=== PATIENT | female | born 2000 | race Caucasian/White ===

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

== ENCOUNTER 2021-09-23 07:01 | Inpatient (IN) | payer MEDICAID, SELFPAY ==
[2021-09-23] VITALS (69 sets, daily range): BP systolic 90–133; BP diastolic 53–78; PULSE 68–202; RESP 16; TEMP 36.2–37; O2SAT 97–100; BMI 36.1
[2021-09-23] MEDS: Lactated Ringers 1,000 ML 50 ML IV (07:40)
--- NOTE | 2021-09-23 07:47 | PCM.HP.OB ---
HPI - General General Date of Admission: 09/23/21 HPI Narrative BRENDA RESENDEZ, is a 21 F at 40w0d who presents for scheduled elective IOL. H/o pre eclampsia with first and obesity in with BMI 35. She is doing well this morning. Denies MICHELE, vision changes, RUQ pain. Occasional ctx's. No vb, lof. Good FM. Maternal Data Information Final ANTONIA: 09/23/21 PFSH PFSH Home Medications PNV cmb#95-ferrous fumarate-FA [ Formula] 1 ea PO DAILY 03/12/18 [History Last Taken 04/25/18 07:00 1 tab] docusate sodium 100 mg PO BID PRN PRN #30 cap 05/01/18 [Rx Last Taken Unknown] ibuprofen 800 mg PO TID PRN PRN #60 tab 05/01/18 [Rx Last Taken Unknown] labetalol 100 mg PO BID #60 tab 05/01/18 [Rx Last Taken Unknown] Allergy/AdvReac Type Severity Reaction Status Date / Time No Known Allergies Allergy Verified 04/28/18 11:51 Social History Smoking Status: Never smoker NST FHR Rate Baby A Baseline: 145 Variability:: Moderate Accelerations:: None Decelerations:: Variable (2 variable decelerations) Vital Signs Vital Signs Vital Signs: 09/23/21 07:24 Temperature 98.2 F Temperature Source Temporal Pulse Rate 103 H Blood Pressure 133/67 H BP Systolic 133 BP Diastolic 67 Physical Exam Const alert and no apparent distress General Appearance: comfortable Resp normal respiratory effort GI soft to palpation and non-tender Extremity normal to inspection Labs Labs Labs: Blood Type O NEGATIVE Antibody Screen NEGATIVE Hct 32.1 % (37-47) L Hgb 10.5 g/dl (12.0-15.0) L Assessment & Plan (1) Rh negative state in antepartum period: (2) Obesity affecting : (3) History of severe pre-eclampsia: (4) 40 weeks gestation of : (5) Elective induction of labor planned: PLAN: - Admit for routine intrapartum care for planned elective IOL - No pre e symptoms on admission. SBP 133 on presentation. Continue to monitor BP's and will send pre e labs - Intracervical almanzar and pitocin gtt - Rapid Covid - UDS - GBS negative - Epidural PRN - EFW expected to be < 4500 g and pelvis adequate - Anticipate vaginal delivery (6) History of marijuana use:
[2021-09-23 08:01] LABS: Absolute Lymphocyte Count 2.53 X10^3/uL (0.83-4.51); Absolute Neutrophil Count 7.2 X10^3/uL (2.0-7.7); Basophil# 0.04 X10^3/uL; Basophil% 0.4 % (0-1); Eosinophils% 0.9 % (0-5); Hematocrit 37.6 % (37-47); Hemoglobin 12.4 g/dL (12.0-15.0); Lymphocyte # 2.53 X10^3/ul (0.83-4.51); Lymphocyte % 23.4 % (19-41); Mean Corpuscular Hgb 28.8 pg (27.0-32.0); Mean Corpuscular Volume 87.2 fL (81-99); Mean Platelet Vol. 13.9 fl (6.2-12.0); Monocyte# 0.84 X10^3/uL; Monocyte% 7.8 % (0-10); NRBC Flagged by Analyzer 0 % (0-5); Neutrophil # 7.23 X10^3/uL (2.7-7.7); Neutrophil % 66.9 % (47-70); Platelet Count 159 K/mm3 (150-450); RBC Distribution Width CV 14.2 % (11.6-14.6); RBC Distribution Width SD 45.3 fl (35.1-43.9); Red Blood Count 4.31 M/mm3 (4.2-5.4); White Blood Count 10.8 K/mm3 (4.4-11.0)
[2021-09-23] MEDS: 0.9% Normal Saline Single 100 ML IV.SOLN. INTRA-UTER (08:05)
[2021-09-23 08:44] LABS: ALB/GLOB Ratio 0.6 RATIO (0.9-2.4); AST(SGOT) 11 U/L (15-37); Alanine Aminotransfer ALT/SGPT 13 U/L (13-56); Albumin, Serum 2.5 g/dL (3.2-5.0); Alkaline Phosphatase 118 U/L (45-117); Anion Gap 8 (5-15); BUN 8 mg/dL (7-18); BUN/Creat Ratio 14.3 RATIO (10-20); Calcium,Total 8.3 mg/dL (8.5-10.1); Chloride 111 mmol/L (98-107); Creatinine, Serum 0.56 mg/dL (0.55-1.02); EST Glomerular Filtration Rate 143 mL/min (>60); Est Glom Filt Rate - Afr Amer 173 mL/min (>60); Estimated Creatinine Clearance 124.63 ml/min; Globulin 4.1 g/dL (2.2-4.2); Glucose 92 mg/dL (74-106); Potassium 3.8 mmol/L (3.5-5.1); Protein, Total 6.6 g/dL (6.4-8.2); Sodium Level 139 mmol/L (136-145)
[2021-09-23] MEDS: Lactated Ringers 500 ML 999 ML IV ×2 (09:28→12:49)
[2021-09-23] MEDS: Oxytocin 30 units/NS 500 ml 30 UNITS/500 ML IV.SOLN IV (10:06)
[2021-09-23 11:06] LABS: Protein, Urine (Random) 19.2 mg/dL (<11.9); Protein:Creat Ratio 202 mg/g CRE (0-200)
[2021-09-23 11:08] LABS: Amphetamine Urine VISTA NEGATIVE (<1000 ng/mL); Barbiturate Urine VISTA NEGATIVE (< 200 ng/mL); Benzodiazepine Urine VISTA NEGATIVE (< 200 ng/mL); Cocaine Urine VISTA NEGATIVE (< 300 ng/mL); Ecstacy Urine VISTA NEGATIVE (< 500 ng/mL); Methadone Urine VISTA NEGATIVE (< 300 ng/mL); PCP Urine VISTA NEGATIVE (< 25 ng/mL); THC Urine VISTA NEGATIVE (< 50 ng/mL); Vista UDS pH Range 6
--- NOTE | 2021-09-23 12:15 | PN.OBGYN_ITS ---
Subjective Subjective Doing well resting in bed on side. Objective Data Objective Data Vital Signs: Vital Signs Temp Pulse BP Pulse Ox 97.3 F L 82 109/56 L 98 09/23/21 12:01 09/23/21 12:03 09/23/21 12:03 09/23/21 12:02 Weight: 197 lb 3.2 oz Body Mass Index (BMI) 36.1 Intake & Output: Intake and Output for Last 24 Hours 09/21/21 09/22/21 09/23/21 23:59 23:59 23:59 Intake Total 595.13 / 595.13 Balance 595.13 / 595.13 Lab / Micro Data Result Diagrams: 09/23/21 07:40 09/23/21 08:10 Labs: Laboratory Results - last 24 hr 09/23/21 07:40: WBC 10.8, RBC 4.31, Hgb 12.4, Hct 37.6, MCV 87.2, MCH 28.8, MCHC 33.0, RDW Std Deviation 45.3 H, RDW Coeff of Brianne 14.2, Plt Count 159, MPV 13.9 H , Immature Gran % (Auto) 0.600, Neut % (Auto) 66.9, Lymph % (Auto) 23.4, [place] % (Auto) 7.8, Eos % (Auto) 0.9, Baso % (Auto) 0.4, Absolute Neuts (auto) 7.2, Absolute Lymphs (auto) 2.53, Nucleated RBC % 0 09/23/21 07:40: Blood Type O NEGATIVE, Antibody Screen NEGATIVE 09/23/21 08:10: Sodium 139, Potassium 3.8, Chloride 111 H, Carbon Dioxide 20.0 L , Anion Gap 8, BUN 8, Creatinine 0.56, Estim Creat Clear Calc 124.63, Est GFR (MDRD) Af Amer 173, Est GFR (MDRD) Non-Af 143, BUN/Creatinine Ratio 14.3, Glucose 92, Calcium 8.3 L, Total Bilirubin 0.30, AST 11 L, ALT 13, Alkaline Phosphatase 118 H, Total Protein 6.6, Albumin 2.5 L, Globulin 4.1, Albumi n/Globulin Ratio 0.6 L 09/23/21 10:40: U Random Total Protein 19.2 H, Urine Creatinine 95.00, Protein/Creatinin Ratio 202 H 09/23/21 10:40: Urine Opiates Screen NEGATIVE, Urine Methadone Screen NEGATIVE, Ur Barbiturates Screen NEGATIVE, Ur Phencyclidine Scrn NEGATIVE, Ur Amphetamines Screen NEGATIVE, U Methamphetamin-MDMA NEGATIVE, U Benzodiazepines Scrn NEGATIVE, Urine Cocaine Screen NEGATIVE, U Cannabinoids Screen NEGATIVE, Ur Drug Screen Comment Micro: Microbiology 09/23/21 08:05 Nasal Secretion SARS-CoV-2 Antigen (Rapid) - Final Physical Exam Narrative cervix 4cm/60/-2 AROM clear fluid NST FHR Rate Baby A Baseline: 135 Variability:: Moderate Accelerations:: 15 x 15 Decelerations:: None FHR Category:: Category I Uterine Activity:: Irregular Assessment & Plan (1) Obesity affecting : (2) Elective induction of labor planned: PLAN: 1) Continue Active management, pitocin per protocol 2) Continuous EFM 3) AROM, clear fluid 4) collaborative physician and notified of patient status.
[2021-09-23] MEDS: fentaNYL-bupivacaine (epidural) 100 ML BAG EPIDURAL (13:19)
[2021-09-23] MEDS: Lactated Ringers 1,000 ML 200 ML IV (17:20)
[2021-09-23] MEDS: Oxytocin 30 units/NS 500 ml 30 UNITS/500 ML IV.SOLN 334 UNITS IV (17:35)
--- NOTE | 2021-09-23 17:45 | PCM.OPRPT ---
Problems Associated Problem List Diagnoses (1) Rh negative state in antepartum period: (2) Obesity affecting : (3) History of severe pre-eclampsia: (4) 40 weeks gestation of : (5) Elective induction of labor planned: (6) History of marijuana use: Report of Operation Date of Procedure: 09/23/21 Pre-Operative Diagnosis: 40 week gestation, intrauterine , obesity in , history of pre eclampsia, elective IOL Post-Operative Diagnosis: As above Surgery/Procedure Performed:: Vaginal delivery Description of Surgical Findings:: VFI in ELPIDIO position. Terminal meconium. Apgars 8,9. Surgeon: Arik Type of Anesthesia: Epidural Special Medications: None Specimen's removed: Placenta Drains: Mccurdy Estimated Blood Loss (mL): 100 Fluids Replaced: N/A Description of Procedure: The patient was complete and pushing. The head of the infant was delivered over an intact perineum in the left occiput anterior position. The cord was noted to be wrapped around the body of the infant x 1, over the shoulders and behind the head, and under the one arm as well, and was not able to be easily reduced. The anterior shoulder, followed by the posterior shoulder, followed by the body of the was delivered through the loose cord that was wrapped around the body of the . The infant was delivered without any force or delay and was vigorous upon delivery. The infant was placed on the maternal abdomen and the cord was clamped and cut after a 60 seconnd delay by the father of the baby. Cord blood was obtained. The placenta was delivered spontaneously and noted to be normal-appearing and intact with three-vessel cord. The uterus was explored x1. No lacerations were noted. She had a periurethral abrasion that was nonbleeding. Vaginal sweep was performed. Instrument sponge counts were correct. Grafts/Implants Used: None Complications None Admit VTE Documentation VTE Present on Admission: No
--- NOTE | 2021-09-23 19:51 | NURSING ---
Epidural catheter removed, blue tip intact.
--- NOTE | 2021-09-23 20:19 | NURSING ---
Report given to Sarina VANG, taking over pt care at this time.
[2021-09-24 00:22] VITALS: BP 112/61; PULSE 88; RESP 16; TEMP 36.7
[2021-09-24] MEDS: Acetaminophen 500 MG Tablet 1000 MG PO ×2 (00:27→10:55)
[2021-09-24] MEDS: Ibuprofen 600 MG Tablet PO (01:57)
[2021-09-24 04:21] VITALS: BP 128/56; PULSE 88; RESP 16; TEMP 36.6
[2021-09-24] MEDS: Etonogestrel 68 MG IMPLANT SC (08:50)
--- NOTE | 2021-09-24 08:58 | PCM.PN.OB ---
Subjective Subjective Denies complaints. Objective Data Objective Data Vital Signs: Vital Signs Temp Pulse Resp BP Pulse Ox 97.8 F 88 16 128/56 H 97 09/24/21 04:21 09/24/21 04:21 09/24/21 04:21 09/24/21 04:21 09/23/21 19:50 Oxygen Delivery Method Room Air Weight: 197 lb 3.2 oz Body Mass Index (BMI) 36.1 Intake & Output: Intake and Output for Last 24 Hours 09/22/21 09/23/21 09/24/21 23:59 23:59 23:59 Intake Total 2903.56 / 2903.56 Output Total 1100 / 1100 400 / 400 Balance 1803.56 / 1803.56 -400 / -400 Lab / Micro Data Result Diagrams: 09/23/21 07:40 09/23/21 08:10 Labs: Laboratory Results - last 24 hr 09/23/21 07:40: Blood Type O NEGATIVE, Antibody Screen NEGATIVE 09/23/21 10:40: U Random Total Protein 19.2 H, Urine Creatinine 95.00, Protein/Creatinin Ratio 202 H 09/23/21 10:40: Urine Opiates Screen NEGATIVE, Urine Methadone Screen NEGATIVE, Ur Barbiturates Screen NEGATIVE, Ur Phencyclidine Scrn NEGATIVE, Ur Amphetamines Screen NEGATIVE, U Methamphetamin-MDMA NEGATIVE, U Benzodiazepines Scrn NEGATIVE, Urine Cocaine Screen NEGATIVE, U Cannabinoids Screen NEGATIVE, Ur Drug Screen Comment 09/24/21 00:35: Screen NEGATIVE, Baby's Blood Type O POSITIVE, Baby's MELIA NEGATIVE Micro: Microbiology 09/23/21 08:05 Nasal Secretion SARS-CoV-2 Antigen (Rapid) - Final Physical Exam Const alert, oriented x3 and no apparent distress HEENT normocephalic GI soft to palpation, non-tender and non-distended GI Narrative: fundus firm, mid & below umbilicus Extremity normal to inspection and no calf tenderness Assessment & Plan (1) Elective induction of labor planned: COMMENT: PPD#1 PLAN: Routine PP care D/c home later today as requested by patient (2) control counseling: PLAN: Patient desires Nexplanon placement and was counseled on R/B/A. Informed consent obtained. Procedure Sign in completed. Arm prepped. Lidocaine (3ml) injected. Nexplanon inserted without difficulty. Sterile bandage placed by RN. Patient tolerated procedure well.
--- NOTE | 2021-09-24 09:01 | PCM.DC ---
Discharge Instructions Diet Discharge Diet: No restrictions Activity Discharge Activity: May Shower May resume sexual activity in: 6 weeks Weight Bearing Status: Weight bearing as tolerated Dressing / Incision Call your doctor if you observe: Fever of 101 or Higher, Coldness, Increased Pain, Change in Color, Inability to urinate, Inability to have a bowel movement, Using more than 1 pad per hour, Shortness of breath, Dizziness, Fainting spells, Chest pain, Increased palpitations (irregular heartbeat), Calf discomfort and Uncontrolled pain Follow Up Care Please Follow Up With: Laurie Lyons MD When: Follow up in 2 and 6 weeks for visits. Test Results: Test results from this visit will be discussed in further detail at your follow-up appointment, if applicable. Discharge Plan Admission Admit Date/Time: 09/23/21 07:01 Primary Reason for Your Visit: Vaginal delivery Attending Provider: Trinity Elise Primary Care Provider: Madeline Boyd Discharge Orders/Prescriptions Prescriptions: New acetaminophen 500 mg Tablet 1,000 mg PO Q6H PRN PRN (Reason: Pain 1-10 Or Fever) Qty: 0 RF: 0 ibuprofen 600 mg Tablet 600 mg PO Q6H PRN PRN (Reason: Pain Score 1-3) Qty: 0 RF: 0 Continued PNV cmb#95-ferrous fumarate-FA [ Multivitamins] 1 EACH tablet 1 ea PO DAILY RF: 0 Discontinued aspirin 81 mg Tablet 81 mg PO DAILY RF: 0 Referrals / Follow Up: Madeline Boyd MD [Primary Care Provider] - Disposition Disposition (needs filled in before D/C Order can be placed): Home, Self Care
[2021-09-24 09:45] VITALS: BP 125/65; PULSE 87; RESP 16; TEMP 36.6
[2021-09-24 12:19] VITALS: BP 110/67; PULSE 80; RESP 16; TEMP 36.4
--- NOTE | 2021-09-24 16:11 | CASEMGMT ---
Social Work Assessment Labor and Delivery Unit Patient Address: [address] [place] [address] Phone number: [phone] Date of Referral: 09.23.2021 Time of Referral: 2021 Referred By: Dr. Elise Date of Intervention: 09.24.2021 Time of Intervention: 1339 Reason for Referral: Maternal history of anxiety and THC use in History obtained from: medical records and mother of baby (MOB) Navneet Berry; father of baby (FOB) Gadiel Carlton present for part of conversation. Household composition: MOB, FOB, and older child. Home situation is reported as safe and adequate. Patient's parent/guardian status: MOB is a 22 year old single female. FOB a single male, born 12.10.1998. Together for 4-5 years. MOB denies any form of abuse, control, intimidation in this relationship. MOB and FOB now have 2 children together. Sharon Carlton, born 09.23.2021 and older daughter Doris Carlton, born 04.29.2018. Medical History: SUE is G2, P1 to 2 after delivering Sharon. care started later at 14 weeks, reportedly due to insurance issues. Delivery of Galsharmila at 40 weeks gestation. Apgars 8 and 9 at 1 and 5 minutes of life. Birthweight 6 pounds 15 ounces. Educational Status: High school. No reported issues with reading, writing, or learning comprehension. Financial Status: SUE was working at [employer], and uncertain whether will return to this employment after maternity leave or to another employment. 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 Is receiving unemployment. MOB and FOB both deny concerns with finances and MOB had saved some money up knowing the lay off could happen. Supplies: MOB and FOB report to have necessary supplies including car seat, bassinet for sleeping, clothing, diapers, wipes, and a breast pump. Plan is to breast feed baby. Childcare/Caregiver(s): MOB and FOB. Will have child care centre director when both parents work. Transportation: Both parents drive. No reported issues. Programs/Agencies Involved: S for medical. No other agency involvement reported. Declines referrals to WIC or [facility] at this time. Children Services/Legal Issues: No reports of legal issues. Denies any past or current involvement with children services. Behavioral Health Issues: Mental Health History: MOB reports history of situational anxiety related to parental home, but since moving out things have gotten better. Denies any concerns about violence, but more issues surrounding gnosticism and expectations. MOB reports a better relationship with parents since moving out of the home. MOB denies history of SI and no HI endorsed. No history of treatment. Denies any mood/anxiety issues after Terra. Substance Use History: MOB denies illicit substance use. Reports belief that the positive drug screen was due to using someone's vape pen, to try the new flavor, and did not know it was marijuana. MOB reports it was a one time things. Denies any use of alcohol in . Denies use of heroin, cocaine, meth, or pills. Drug Screens: Maternal drug screen in March at 14 week visit for marijuana (03.27.2021). Negative upon admission. Baby's urine is negative. Meconium is pending. Family/Social Stressors: No identified stressors at this time. Support Systems: MOB reports support from FOB, FOB's parents (who are watching Terra) and MOB's parents. FOB reports will have more time at home to help out due to being laid off. Depression/Shaken Baby/Safe Sleeping : Reviewed shaken baby prevention and safe sleeping. Educated to mood and anxiety disorders, risk factors, and importance of seeking out and accepting support should symptoms arise and/or become distressing. ASSESSMENT: Met with MOB and FOB in room, introducing to self and social work role. Later in assessment asked FOB to leave to completed depression screening. Then also spoke with MOB about topics of substance use and domestic violence. MOB and FOB both cooperative, appearing relaxed, polite. MOB attentive to baby during social work visit. Appropriate in how handled the baby. Baby sneezed intermittently throughout social work visit. There have been no voiced concerns to this conventional underwriter regarding parents/child interactions or bonding. MOB and FOB deny any concerns with home going, report to have needed supplies for baby and to have adequate support from family. MOB and FOB both deny any PPD after Terra was born. MOB reports to feel a connection to the new baby. Privately addressed with MOB the maternal substance use. MOB maintains that used marijuana one time only, and believes the source was due to trying someone else's vape pen. Educated MOB to [place] and reporting substance exposure in utero to children services. Let MOB know that uncertain if anything will be done at this time, but should the meconium come back positive then likely said agency would make some contact. MOB had no voiced questions or concern and accepted education without issue. Safe Plan of Care for infant related to substance use: MOB reports use was one time. Denies use prior to or ongoing. Plans to remain drug free. PLAN: MOB and baby to home. Provided MOB with an [facility] social service resource list as well as packet on mood and anxiety disorders. Plan to call children services due to 2nd trimester drug screen/substance exposure to infant in utero, and no retesting until time of delivery. -DANA Quarles, THEATER TECHNICIAN
[2021-09-24 17:31] VITALS: BP 121/78; PULSE 69; RESP 16; TEMP 36.3
--- NOTE | 2021-09-25 09:40 | CASEMGMT ---
Social Work Labor and Delivery Unit Called [facility] at [phone] and spoke with Sabrina in the screening department. Referral given due to late care and substance exposure to infant in utero. Reported negative drug screens for mom and baby at time of delivery, pending meconium. Brief maternal and infant histories provided. No other services requested or indicated other than monitor for meconium drug screen results. -JESSENIA Quarles, CHAIN HOOKER
== END 2021-09-24 18:32 | disposition home or self-care (01) | DRG 560 ==
PROVIDERS: Admitting Provider Obstetrics & Gynecology; PCP Pediatrics; Referring Provider Obstetrics & Gynecology; Visit Provider Obstetrics & Gynecology
DX: O99.214 Obesity complicating childbirth (principal); Z37.0 Single live birth; E66.9 Obesity, unspecified; O76 Abnormality in fetal heart rate and rhythm complicating labor and delivery; Z3A.40 40 weeks gestation of pregnancy; Z87.59 Personal history of other complications of pregnancy, childbirth and the puerperium; Z87.898 Personal history of other specified conditions; Z67.91 Unspecified blood type, Rh negative; O69.82X0 Labor and delivery complicated by other cord entanglement, without compression, not applicable or unspecified
CPT/HCPCS: 59025; 59050; 80053; 80307; 82570; 84156; 85025; 85461; 86850; 86900; 86901; 87426; 90384; 99218; J7120; G0378; J2790

== ENCOUNTER 2022-07-23 03:21 | Emergency (ER) | payer MEDICAID, SELFPAY ==
[2022-07-23 03:22] VITALS: BP 132/64; PULSE 89; RESP 14; TEMP 36.7; O2SAT 98; BMI 36.3
--- NOTE | 2022-07-23 03:25 | EKG12_ITS ---
Test Reason : CP Blood Pressure : / mmHG Vent. Rate : 089 BPM Atrial Rate : 089 BPM P-R Int : 160 ms QRS Dur : 082 ms QT Int : 382 ms P-R-T Axes : 058 028 037 degrees QTc Int : 464 ms Normal sinus rhythm with sinus arrhythmia Normal ECG Confirmed by CHIQUIS ALMONTE, SHERRY ([id number]), subeditor AWA BURGESS ([id number]) on 07/25/2022 10:30:40 A M Referred By: ROBERT Confirmed By:HILLARY SIM MD
--- NOTE | 2022-07-23 03:47 | RAD_ITS ---
EXAM: XR CHEST, 2 VIEWS CLINICAL INDICATION: chest pain TECHNIQUE: Frontal and lateral views of the chest. This report was created using [employer] report generation technology. COMPARISON: None. FINDINGS: LUNGS AND PLEURAL SPACES: Unremarkable. No consolidation or edema. No pneumothorax. No effusion. HEART: Unremarkable. Cardiac silhouette not enlarged. MEDIASTINUM: Central airways and mediastinal contour are unremarkable. BONES/JOINTS: Unremarkable. SOFT TISSUES: Unremarkable. RAD/Chest PA and Lateral IMPRESSION: No radiographic evidence of acute cardiopulmonary disease. Electronically Signed: Ap Zeng MD at 5:55 EST ,
--- NOTE | 2022-07-23 04:00 | EX.ED.DYSGE1 ---
HPI History of Present Illness Chief Complaint: Chest Pain Narrative Narrative: Patient is a 22-year-old female with past medical history of vaping as well as preeclampsia in . She states that over the past few months she will intermittently have times where she feels like her chest is on fire. She states that it seems to occur more at night when she is trying to lay down for bed. She denies any previous history of asthma and she denies any family history of cardiac disease at a young age. She also denies any recent surgery travel or history of DVT/PE. She does state that she feels her symptoms have been more prevalent recently and secondary to this comes in for evaluation [facility] Medical History control counseling History of severe pre-eclampsia Pre-eclampsia Home Medications albuterol sulfate 90 mcg/actuation aerosol inhaler (Ventolin HFA) 1 - 2 puff inhalation Q4H PRN PRN Wheezing #1 device 07/23/22 [Rx Last Taken Unknown] Allergy/AdvReac Type Severity Reaction Status Date / Time No Known Allergies Allergy Verified 07/23/22 03:27 Social History Smoking Status: Never smoker [facility] ED Constitutional Constitutional ED: Denies chills or fever(s) ENT ENT ED: Denies sore throat Cardiovascular Cardiovascular: Reports chest pain; Denies palpitations or racing heartbeat Respiratory/Chest Respiratory/Chest: Reports dyspnea; Denies cough Gastrointestinal Gastrointestinal: Denies abdominal pain, diarrhea, nausea or vomiting Genitourinary Genitourinary ED: Denies dysuria Musculoskeletal Musculoskeletal: Denies myalgias Integumentary Denies rash Neurologic Neurologic: Denies headache(s) Psychiatric Psychiatric: Denies anxiety Hematologic/Lymphatic Hematologic/Lymphatic: Denies easy bleeding or easy bruising EXAM Physical Exam Const Vital Signs: 07/23/22 03:22 07/23/22 03:28 07/23/22 04:04 Temperature 98.0 F Temperature Source Oral Pulse Rate 89 72 Respiratory Rate 14 15 Respiratory Effort Non-Labored Blood Pressure 132/64 H 120/75 Blood Pressure Mean 86 90 Pulse Ox 98 98 Oxygen Delivery Method Room Air Room Air Positive well nourished, well developed and obese General Appearance ED: well developed Nutritional Appearance: obese HEENT Reports moist mucous membranes HEENT Narrative: No tongue or lip swelling no oral lesions no airway edema or compromise Eyes PERRL and EOMs intact bilaterally Neck supple and no JVD Chest Wall palpation of chest normal Resp normal respiratory effort and clear to auscultation bilaterally Cardio regular rate and regular rhythm Rate: other Other Details: Radial pulses are +2-4 bilaterally they are equal and symmetric GI normal to inspection, nondistended, normoactive bowel sounds, non-tender, non-distended and no masses Auscultation: normoactive bowel sounds Palpation: soft Extremity normal to inspection Extremity Narrative: No asymmetric edema no pitting edema negative Homans' sign bilaterally Neuro oriented x3 and CN's II-XII intact bilaterally Sensorium / Orientation: alert Psych Psych Narrative: Patient has a nervous/anxious affect Skin no rashes or lesions noted MDM MDM MDM Narrative Medical decision making narrative: Patient presented to the ER with stable vitals and no acute respiratory distress. She is low risk for cardiac disease or pulmonary embolus but as she reports her symptoms have been intermittent over the past few months I did elect to perform a basic work-up. As she does vape and is on control I did check a D-dimer which was negative. Patient's EKG is sinus rhythm without ischemic or dysrhythmia changes and on the monitor there was no cardiac dysrhythmia noted during her work-up. Basic laboratory studies also revealed no clinically significant changes. Therefore at this time I feel patient may be having intermittent symptoms based on her vaping exposure which could be exacerbated by anxiety. However as she does not have derangement to her vitals and is low risk for cardiovascular disease and her overall work-up is negative I do not feel there is need for further treatment in ER and she is otherwise safe for discharge Lab Data Attestation: I reviewed the patient's lab results. Labs: Laboratory Results - last 24 hr 07/23/22 07/23/22 07/23/22 03:33 03:33 03:33 WBC 11.6 H RBC 4.45 Hgb 12.5 Hct 38.3 MCV 86.1 MCH 28.1 MCHC 32.6 RDW Std Deviation 41.0 RDW Coeff of Brianne 13.2 Plt Count 235 MPV 12.9 H Immature Gran % (Auto) 0.300 Neut % (Auto) 61.4 Lymph % (Auto) 28.9 [place] % (Auto) 7.1 Eos % (Auto) 1.9 Baso % (Auto) 0.4 Absolute Neuts (auto) 7.1 Absolute Lymphs (auto) 3.36 Nucleated RBC % 0 D-Dimer Quant (PE/DVT) 0.28 Sodium 139 Potassium 3.8 Chloride 107 Carbon Dioxide 26.0 Anion Gap 6 BUN 13 Creatinine 0.78 Estim Creat Clear Calc 88.72 Est GFR (MDRD) Af Amer 117 Est GFR (MDRD) Non-Af 97 BUN/Creatinine Ratio 16.7 Glucose 102 Calcium 9.1 Magnesium 1.8 Serum , Qual 07/23/22 03:33 WBC RBC Hgb Hct MCV MCH MCHC RDW Std Deviation RDW Coeff of Brianne Plt Count MPV Immature Gran % (Auto) Neut % (Auto) Lymph % (Auto) [place] % (Auto) Eos % (Auto) Baso % (Auto) Absolute Neuts (auto) Absolute Lymphs (auto) Nucleated RBC % D-Dimer Quant (PE/DVT) Sodium Potassium Chloride Carbon Dioxide Anion Gap BUN Creatinine Estim Creat Clear Calc Est GFR (MDRD) Af Amer Est GFR (MDRD) Non-Af BUN/Creatinine Ratio Glucose Calcium Magnesium Serum , Qual NEGATIVE Radiography Diagnostic Testin view chest x-ray as interpreted by the emergency medicine physician reveals no acute infiltrate pneumothorax or pleural effusion Discharge Plan Triage Chief Complaint: Chest Pain ED Provider: Oral Ashford Dx/Rx/DC Orders Clinical Impression: Acute nonspecific chest pain with low risk of coronary artery disease, History of marijuana use Instructions: ED Bronchospasm (Adult), ED Chest Pain, Uncertain Cause Prescriptions: New albuterol sulfate [Ventolin HFA] 90 mcg/actuation HFA aerosol inhaler 1 - 2 puff inhalation Q4H PRN PRN (Reason: Wheezing) Qty: 1 0RF Primary Care Provider: Care Physician,No Primary Referrals: Lydia Collins MD [Med Staff - Lead Web Developer] - Care Physician,No Primary [Primary Care Provider] - Disposition Disposition: Home, Self Care
[2022-07-23 04:02] LABS: Absolute Lymphocyte Count 3.36 X10^3/uL (0.83-4.51); Absolute Neutrophil Count 7.1 X10^3/uL (2.0-7.7); Basophil# 0.05 X10^3/uL; Basophil% 0.4 % (0-1); Eosinophil# 0.22 X10^3/uL; Eosinophils% 1.9 % (0-5); Hematocrit 38.3 % (37-47); Hemoglobin 12.5 g/dL (12.0-15.0); Lymphocyte # 3.36 X10^3/ul (0.83-4.51); Lymphocyte % 28.9 % (19-41); Mean Corp Hgb Conc 32.6 g/dL (32-36); Mean Corpuscular Hgb 28.1 pg (27.0-32.0); Mean Corpuscular Volume 86.1 fL (81-99); Mean Platelet Vol. 12.9 fl (6.2-12.0); Monocyte# 0.83 X10^3/uL; Monocyte% 7.1 % (0-10); NRBC Flagged by Analyzer 0 % (0-5); Neutrophil # 7.11 X10^3/uL (2.7-7.7); Neutrophil % 61.4 % (47-70); Platelet Count 235 K/mm3 (150-450); RBC Distribution Width CV 13.2 % (11.6-14.6); Red Blood Count 4.45 M/mm3 (4.2-5.4); White Blood Count 11.6 K/mm3 (4.4-11.0)
[2022-07-23 04:04] VITALS: BP 120/75; PULSE 72; RESP 15; O2SAT 98
[2022-07-23 04:07] LABS: Anion Gap 6 (5-15); BUN 13 mg/dL (7-18); BUN/Creat Ratio 16.7 RATIO (10-20); Calcium,Total 9.1 mg/dL (8.5-10.1); Chloride 107 mmol/L (98-107); Creatinine, Serum 0.78 mg/dL (0.55-1.02); EST Glomerular Filtration Rate 97 mL/min (>60); Est Glom Filt Rate - Afr Amer 117 mL/min (>60); Estimated Creatinine Clearance 88.72 ml/min; Glucose 102 mg/dL (74-106); Magnesium 1.8 mg/dL (1.6-2.6); Potassium 3.8 mmol/L (3.5-5.1); Sodium Level 139 mmol/L (136-145)
[2022-07-23 04:12] LABS: D-Dimer Quantitative (DVT/PE) 0.28 FEU/ug/m (0.27-0.49)
[2022-07-23 04:13] LABS: Internal QC Validated? YES +Cl - CLEAR BKGD; Pregnancy, Serum, hCG Quali. NEGATIVE Negative
[2022-07-23 04:28] VITALS: BP 122/83; PULSE 86; RESP 18; O2SAT 97
== END 2022-07-23 04:41 | disposition home or self-care (01) ==
PROVIDERS: Emergency Provider Emergency Medicine; Visit Provider Emergency Medicine
DX: R07.9 Chest pain, unspecified (principal); R06.00 Dyspnea, unspecified; E66.9 Obesity, unspecified
CPT/HCPCS: 71046; 80048; 83735; 84703; 85025; 85379; 93005; 99283; A4216

== ENCOUNTER 2023-01-10 11:06 | Emergency (ER) | payer BC, MEDICAID, SELFPAY ==
[2023-01-10 11:07] VITALS: BP 123/84; PULSE 94; RESP 16; TEMP 36.9; O2SAT 99; BMI 34.6
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
== END 2023-01-10 11:30 | disposition home or self-care (01) ==
LOC: ED 11:25
PROVIDERS: Emergency Provider Emergency Medicine; Visit Provider Emergency Medicine
DX: S39.012A Strain of muscle, fascia and tendon of lower back, initial encounter (principal); V89.2XXA Person injured in unspecified motor-vehicle accident, traffic, initial encounter; S16.1XXA Strain of muscle, fascia and tendon at neck level, initial encounter; W22.11XA Striking against or struck by driver side automobile airbag, initial encounter; Y92.410 Unspecified street and highway as the place of occurrence of the external cause
CPT/HCPCS: 99282